=== PATIENT | male | born 1960 | race Caucasian/White ===

== ENCOUNTER 2019-08-06 20:12 | Inpatient (IN) | payer OTHER, MEDICAID ==
[~2019-08-06] VITALS: Ht 175.3 cm; Wt 61.7 kg
--- NOTE | 2019-08-06 20:17 | NUR ---
Placed in room 04 . Placed on groundwater monitoring technician, blood pressure machine and pulse oximeter. To gown for exam. Side rails up.
[2019-08-06 20:18] VITALS: BP_SYST 124
--- NOTE | 2019-08-06 20:30 | NUR ---
ER at bedside examining patient.
--- NOTE | 2019-08-06 20:35 | NUR ---
Pt present to ER with c/o of generalized weakness and not eating well. Pt was sent by physician to ER for further evaluaton. Pt has Hx of HTN and unknown cancer. Pt states he is to start chemotherapy in a few weeks, but denies starting. Pt denies any SOB< fever, N/V, chills. Will continue to monitor.
--- NOTE | 2019-08-06 20:40 | NUR ---
Dr. Perez at bedside examining Pt.
--- NOTE | 2019-08-06 20:45 | NUR ---
# 20 gauge angiocath placed to LFA. Use of asceptic technique. Opsite placed over site. Blood return noted. Blood for lab drawn from site. Flushed with 10 cc of normal saline. No evidence of infiltration noted. Patient tolerated well.
[2019-08-06] MEDS ORDERED: FOLI-43 PO (21:06)
[2019-08-06] MEDS ORDERED: IPRA4AER INH (21:06)
[2019-08-06] MEDS ORDERED: VITA1CAP PO (21:06)
[2019-08-06] MEDS ORDERED: BENA5TAB5 PO (21:06)
[2019-08-06] MEDS ORDERED: ASA81 PO (21:06)
[2019-08-06] MEDS ORDERED: TAMS-11 PO (21:06)
[2019-08-06] MEDS ORDERED: POTA8CAP17 PO (21:06)
[2019-08-06] MEDS ORDERED: MELA3TAB64 PO (21:06)
[2019-08-06] MEDS ORDERED: ATROPINE SULFATE 0.5 MG/5 ML SYRINGE IVP ONE (21:15)
--- NOTE | 2019-08-06 21:15 | NUR ---
Medication reconciliation completed with information provided by patient . Any prior medication reconciliation on file was reviewed and corrected.
[2019-08-06 21:16] LABS: BASOPHILS # (AUTO) 0.1 K/uL (0.0-0.2); BASOPHILS % (AUTO) 2.3 % (0.0-2.0); EOSINOPHILS # (AUTO) 0.2 K/uL (0.0-0.4); EOSINOPHILS % (AUTO) 4.6 % (0.0-4.0); HEMATOCRIT 28.2 % (36-54); HEMOGLOBIN 8.8 g/dL (14.0-18.0); LYMPHOCYTES # (AUTO) 1.6 K/uL (1.0-5.5); LYMPHOCYTES % (AUTO) 35.8 % (20.5-51.5); MEAN CORPUSCULAR HEMOGLOBIN 23 pg (27-31); MEAN CORPUSCULAR HGB CONC 31 % (32-36); MEAN CORPUSCULAR VOLUME 73 fL (79.0-98.0); MONOCYTES # (AUTO) 0.4 K/uL (0.0-1.0); MONOCYTES % (AUTO) 8.3 % (1.7-9.3); NEUTROPHILS # (AUTO) 2.2 K/uL (1.8-7.7); PLATELET COUNT (AUTO) 211 K/uL (130-430); RED BLOOD CELL COUNT(AUTO) 3.87 MIL/uL (4.2-6.2); RED CELL DISTRIBUTION WIDTH 16.7 % (9.0-15.0); WHITE BLOOD COUNT (AUTO) 4.6 K/uL (4.8-10.8)
[2019-08-06] MEDS ORDERED: ATROPINE SULFATE 1 MG/10 ML SYRINGE IVP ONE (21:24)
[2019-08-06 21:41] LABS: CALCIUM 8.7 mg/dL (8.4-11.0); CREATININE 0.98 mg/dL (0.55-1.30); INR 1.1 (0.80-1.20); POTASSIUM 3.7 mmol/L (3.5-5.1); PROTHROMBIN TIME 10.9 SECS (9.5-12.5)
[2019-08-06 21:47] LABS: ALBUMIN 3.3 g/dL (3.4-4.8); TOTAL BILIRUBIN 0.2 mg/dL (0.0-1.0)
--- NOTE | 2019-08-06 23:57 | NUR ---
Patient will be admitted to care of Dr. Olsen. Admitted to Telemetry unit. Will go to room 113B. Belongings list completed. Medical reconcilation completed. Summary report printed. Report will be given at bedside.
[2019-08-07] VITALS (7 sets, daily range): BP systolic 103–139
--- NOTE | 2019-08-07 00:16 | NUR ---
ADMISSION NOTE Received patient from ER via [facility], received report from IMANI sanders. Patient admitted with diagnosis of UIT, BRADYCARDIA AND FAILURE TO THRIVE. Patient oriented to hospital routine, call light, toileting and safety-patient verbalized understanding.
--- NOTE | 2019-08-07 01:06 | NUR ---
RN ROUNDS Patient is aox4, vital signs stable, on room air, denies any pain or discomfort at this time, placed on tele monitor, sinus bradycardia, HR in the 40s. Patient asymptomatic, IV line to left forearm intact and patent, saline lock, patient oriented to room and call light for nurse assistance, HS snack given, all belongings accounted for, educated on fall and safety measures, call light within reach, will monitor.
--- NOTE | 2019-08-07 02:08 | NUR ---
RN ROUNDS Patient awake, watching tv, breathing even and unlabored, denies any pain or discomfort at this time, safety measures in place, call light within reach.
--- NOTE | 2019-08-07 04:06 | NUR ---
RN ROUNDS Patient asleep, breathing even and unlabored, remains on room air, fall and safety measures in place, call light within reach, will monitor.
--- NOTE | 2019-08-07 06:07 | NUR ---
RN ROUNDS Patient asleep, breathing even and unlabored, remains sinus bradycardia on tele monitor. Needs attended through out the shift, fall and safety measures maintained, call light within reach, will monitor until report given to am nurse.
[2019-08-07 06:42] LABS: BILIRUBIN,URINE NEGATIVE (NEGATIVE); CLARITY/URINE SL HAZY (CLEAR); COLOR,URINE YELLOW (YELLOW); GLUCOSE,URINE NEGATIVE (NEGATIVE); KETONES,URINE NEGATIVE (NEGATIVE); LEUKOCYTE ESTERASE ,URINE 3+ (NEGATIVE); NITRITE, URINE NEGATIVE (NEGATIVE); PH,URINE 6.5 (5.0-8.0); PROTEIN URINE NEGATIVE (NEGATIVE); UROBILINOGEN,URINE 0.2 (0.2-1.0)
[2019-08-07 06:45] LABS: ALBUMIN 2.5 g/dL (3.4-4.8); CALCIUM 7.9 mg/dL (8.4-11.0); CREATININE 0.71 mg/dL (0.55-1.30); POTASSIUM 3.5 mmol/L (3.5-5.1); TOTAL BILIRUBIN 0.3 mg/dL (0.0-1.0)
[2019-08-07 06:45] LABS: BLOOD, URINE TRACE (NEGATIVE)
--- NOTE | 2019-08-07 06:59 | NUR ---
CONSULTATION PAGED REASON FOR CONSULTATION:BRADYCARDIA WAS CONSULT CALLED?Y PERSON WHO WAS NOTIFIED:FIDELINA CONSULTING PHYSICIAN:BRENT SHEEHAN BRIM AND CROWN PRESSER SPECIALTY:CARDIO BRIM AND CROWN PRESSER PHONE NUMBER:[phone] ORDERING PHYSICIAN:ANTONINO ANDERSON
[2019-08-07 07:47] LABS: HEMATOCRIT 24.9 % (36-54); HEMOGLOBIN 7.9 g/dL (14.0-18.0); RED BLOOD CELL COUNT(AUTO) 3.42 MIL/uL (4.2-6.2)
[2019-08-07 07:48] LABS: BASOPHILS % (AUTO) 0.8 % (0.0-2.0); EOSINOPHILS # (AUTO) 0.2 K/uL (0.0-0.4); LYMPHOCYTES # (AUTO) 1.6 K/uL (1.0-5.5); LYMPHOCYTES % (AUTO) 44.6 % (20.5-51.5); MEAN CORPUSCULAR HEMOGLOBIN 23 pg (27-31); MEAN CORPUSCULAR HGB CONC 32 % (32-36); MEAN CORPUSCULAR VOLUME 73 fL (79.0-98.0); MONOCYTES # (AUTO) 0.4 K/uL (0.0-1.0); MONOCYTES % (AUTO) 10.8 % (1.7-9.3); NEUTROPHILS # (AUTO) 1.3 K/uL (1.8-7.7); NEUTROPHILS % (AUTO) 37.8 % (40.0-70.0); PLATELET COUNT (AUTO) 184 K/uL (130-430); RED CELL DISTRIBUTION WIDTH 16.7 % (9.0-15.0)
[2019-08-07 07:49] LABS: WHITE BLOOD COUNT (AUTO) 3.6 K/uL (4.8-10.8)
--- NOTE | 2019-08-07 08:00 | NUR ---
initial notes rec patient awake alert with ivl on the l forearm intact. no infiltration noted. resp easy and unlabored. no sob noted. bed to the lowest position and side rails up and locked. call light within reached and knows when to call for assistance. will continue to monitor patient.
[2019-08-07 08:06] LABS: BACTERIA,URINE MODERATE /HPF (None Seen); WBC,URINE 20-50 /HPF (0-3)
--- NOTE | 2019-08-07 10:00 | NUR ---
rounds asleep at intervals or watching tv. no sob noted. call light within reached.
--- NOTE | 2019-08-07 12:00 | NUR ---
rounds eating lunch . no sob noted. turned repositioned self in bed. call light within reached.
--- NOTE | 2019-08-07 13:31 | NUR ---
CONSULTATION PAGED REASON FOR CONSULTATION:DEPRESSION WAS CONSULT CALLED?Y PERSON WHO WAS NOTIFIED:ESTRELLITA CONSULTING PHYSICIAN:CHANDRA HARDY BRIM RAISER SPECIALTY:PSYCH BRIM RAISER PHONE NUMBER:[phone] ORDERING PHYSICIAN:ANTONINO ANDERSON FACESHEET WILL BE FAXED
--- NOTE | 2019-08-07 14:00 | NUR ---
rounds seen by dr rgegory. denies pain and watching tv.
--- NOTE | 2019-08-07 15:49 | NUR ---
Consulting Utility Forester: met with pt. who has hx of anxiety, possibly depression, and possibly paranoid schizophrenia. DATA CONVERSION ANALYST met with pt. who was sitting up in his bed. Pt. stated he was doing well, but wants to know when he will be discharged. He stated he has 3 younger adult brothers, has been and has one son in his 30's who lives in the [facility]. He said he was living with one of his brothers, but came from a [place]. Pt. stated when he was getting a divorce, his kept his son from him so know he does not have a real connection or relationship with him. Pt. does have his 3 brothers to support him and they reside in [place]. He stated he did not like the [place] food as he hates Mayonnaise. He added he is lactose intolerant. Pt. stated he use to weigh 180 pounds and now weights 136. Pt. stated he will be going back to the [place]. DATA CONVERSION ANALYST asked him about any mental health concerns and if he had ever been Dx. with depression anxiety paranoid schizophrenia. Pt. answered yes to all. He stated he use to take medication for depression. He thinks he was taking Zoloft in the late 80's or early 90's. Pt stated he has a PCP and knows how to access help for any mental health needs. Pt. stated he really likes fishing, shooting and archery. Pt stated he learned all this as a [employer] and he likes the outdoors. Pt. feels the outdoors is a healing for him. DATA CONVERSION ANALYST provided pt. with some mental health resources as well as some medical clinics in the event he needs them. Pt. stated he just could not remember the clinics name ,but knows where to go for services. Pt stated he is feeling well mentally and does not need any interventions or mental health services. DATA CONVERSION ANALYST will remain available as needed. Addendum: 08/07/19 at 1603 by Frida Barrios DATA CONVERSION ANALYST Pt. is still wating for a Psyc. Consult.
--- NOTE | 2019-08-07 18:39 | NUR ---
closing notes resting comfortably after dinner. denies pain. no sob noted. bed to the lowest position. and side rails up and locked. call light within reached.
--- NOTE | 2019-08-07 19:50 | NUR ---
INITIAL NOTE AT INITIAL ASSESSMENT, PATIENT IS RESTING IN BED, STABLE, NO SIGNS OF RESPIRATORY DISTRESS. PATIENT VERBALIZES NO PAIN. PLAN OF CARE FOR THE EVENING IS COMMUNICATED WITH THE PATIENT. PATIENT DEMONSTRATES CORRECT USAGE OF CALL LIGHT AT THIS TIME. BED IS LOCKED, ALARMED, AND AT THE LOWEST LEVEL. FALL AND SAFETY PRECAUTIONS WILL BE TAKEN THROUGHOUT THE SHIFT.
--- NOTE | 2019-08-07 21:50 | NUR ---
NOTE PATIENT IS RESTING IN BED, STABLE, NO SIGNS OF RESPIRATORY DISTRESS. CALL LIGHT IS WITHIN REACH. BED IS LOCKED, ALARMED, AND AT THE LOWEST LEVEL.
--- NOTE | 2019-08-07 23:50 | NUR ---
NOTE PATIENT IS SLEEPING, STABLE, NO SIGNS OF RESPIRATORY DISTRESS. CALL LIGHT IS WITHIN REACH. BED IS LOCKED, ALARMED, AND AT THE LOWEST LEVEL.
--- NOTE | 2019-08-08 01:45 | NUR ---
NOTE PATIENT IS SLEEPING, STABLE, NO SIGNS OF RESPIRATORY DISTRESS. CALL LIGHT IS WITHIN REACH. BED IS LOCKED, ALARMED, AND AT THE LOWEST LEVEL.
--- NOTE | 2019-08-08 03:45 | NUR ---
NOTE PATIENT IS SLEEPING, STABLE, NO SIGNS OF RESPIRATORY DISTRESS. CALL LIGHT IS WITHIN REACH. BED IS LOCKED, ALARMED, AND AT THE LOWEST LEVEL.
--- NOTE | 2019-08-08 05:45 | NUR ---
NOTE PATIENT IS RESTING IN BED, STABLE, NO SIGNS OF RESPIRATORY DISTRESS. CALL LIGHT IS WITHIN REACH. BED IS LOCKED, ALARMED, AND AT THE LOWEST LEVEL.
--- NOTE | 2019-08-08 06:35 | NUR ---
CLOSING NOTE PATIENT SLEPT WELL THROUGHOUT THE NIGHT. AT THIS TIME, HE IS RESTING IN BED, STABLE, NO SIGNS OF RESPIRATORY DISTRESS. CALL LIGHT IS WITHIN REACH. BED IS LOCKED, ALARMED, AND AT THE LOWEST LEVEL. FALL AND SAFETY PRECAUTIONS HAVE BEEN IN PLACE THROUGHOUT THE SHIFT. WILL CONTINUE TO MONITOR UNTIL SHIFT REPORT IS GIVEN AT BEDSIDE TO AM NURSE.
[2019-08-08 07:44] LABS: BASOPHILS % (AUTO) 0.6 % (0.0-2.0); CALCIUM 8.3 mg/dL (8.4-11.0); CREATININE 0.77 mg/dL (0.55-1.30); EOSINOPHILS # (AUTO) 0.2 K/uL (0.0-0.4); EOSINOPHILS % (AUTO) 4.5 % (0.0-4.0); HEMATOCRIT 27.4 % (36-54); HEMOGLOBIN 8.7 g/dL (14.0-18.0); LYMPHOCYTES # (AUTO) 1.4 K/uL (1.0-5.5); LYMPHOCYTES % (AUTO) 36.4 % (20.5-51.5); MEAN CORPUSCULAR HEMOGLOBIN 23 pg (27-31); MEAN CORPUSCULAR HGB CONC 32 % (32-36); MEAN CORPUSCULAR VOLUME 73 fL (79.0-98.0); MONOCYTES # (AUTO) 0.4 K/uL (0.0-1.0); MONOCYTES % (AUTO) 9.6 % (1.7-9.3); NEUTROPHILS # (AUTO) 1.9 K/uL (1.8-7.7); NEUTROPHILS % (AUTO) 48.9 % (40.0-70.0); PLATELET COUNT (AUTO) 191 K/uL (130-430); POTASSIUM 3.6 mmol/L (3.5-5.1); RED BLOOD CELL COUNT(AUTO) 3.77 MIL/uL (4.2-6.2); RED CELL DISTRIBUTION WIDTH 16.8 % (9.0-15.0); WHITE BLOOD COUNT (AUTO) 3.9 K/uL (4.8-10.8)
[2019-08-08 07:53] VITALS: BP_SYST 127
[2019-08-08 08:00] VITALS: BP_SYST 140
--- NOTE | 2019-08-08 08:00 | NUR ---
ASSUMPTION OF CARE: RECEIVED PT A/A/OX4, DX: INADEQUATE PERFUSION, R/T BRADYCARDIA, FAILURE TO THRIVE, UTI, HR=54 ON TELEMONITOR, ASYMPTOMATIC, AFEBRILE, BREATH SOUNDS ARE CLEAR, BREATHING UNLABORED, IV SITE INTACT, PATENT, NO REDNESS OR SWELLING, ORIENTED TO UNIT, CALL LIGHT PLACED WITHIN REACH, WILL CON'T TO MONITOR AND ASSESS.
[2019-08-08 12:00] VITALS: BP_SYST 125
--- NOTE | 2019-08-08 12:00 | NUR ---
NURSES NOTES: PT RESTING IN POSITION OF COMFORT, NO S/S OF DISTRESS, NEED MET, CALL LIGHT PLACED WITHIN REACH, WILL CON'T TO MONITOR AND ASSESS.
--- NOTE | 2019-08-08 14:00 | NUR ---
NURSES NOTES: PT MONITORED FOR CHANGES, REMAINS STABLE, NO C/O PAIN OR DISCOMFORT, WILL CON'T WITH POC.
--- NOTE | 2019-08-08 16:04 | NUR ---
Dietitian Recommendation 1. Continue Regular diet Please see Nutrition Assessment for further details. LT, RD
--- NOTE | 2019-08-08 18:00 | NUR ---
END OF SHIFT: PT HAS BEEN CLEANED, COLOSTOMY BAG CHANGED, LINEN CHANGED, MADE COMFORTABLE, CALL LIGHT PLACED WITHIN REACH, WILL ENDORSE TO NARROW FABRICS WEAVER NURSE.
[2019-08-08 19:50] VITALS: BP_SYST 139
[2019-08-08] MEDS: MIRTAZAPINE 15 MG TABLET PO SCH (20:18)
--- NOTE | 2019-08-08 21:50 | NUR ---
PATIENT REFUSES MEDICATION PATIENT IS REFUSING NEW SCHEDULED ORDER FOR REMERON DESPITE EDUCATIONAL EFFORTS. HE IS OTHERWISE STABLE. AT THIS TIME, PATIENT IS RESTING IN BED, STABLE, NO SIGNS OF RESPIRATORY DISTRESS. CALL LIGHT IS WITHIN REACH. BED IS LOCKED, ALARMED, AND AT THE LOWEST LEVEL.
--- NOTE | 2019-08-08 23:50 | NUR ---
NOTE PATIENT IS SLEEPING, STABLE, NO SIGNS OF RESPIRATORY DISTRESS. CALL LIGHT IS WITHIN REACH. BED IS LOCKED, ALARMED, AND AT THE LOWEST LEVEL.
--- NOTE | 2019-08-09 01:50 | NUR ---
NOTE PATIENT IS SLEEPING, STABLE, NO SIGNS OF RESPIRATORY DISTRESS. CALL LIGHT IS WITHIN REACH. BED IS LOCKED, ALARMED, AND AT THE LOWEST LEVEL.
[2019-08-09 02:53] VITALS: BP_SYST 130
--- NOTE | 2019-08-09 03:50 | NUR ---
NOTE PATIENT IS SLEEPING, STABLE, NO SIGNS OF RESPIRATORY DISTRESS. CALL LIGHT IS WITHIN REACH. BED IS LOCKED, ALARMED, AND AT THE LOWEST LEVEL.
--- NOTE | 2019-08-09 05:10 | NUR ---
NOTE PATIENT IS SLEEPING, STABLE, NO SIGNS OF RESPIRATORY DISTRESS. CALL LIGHT IS WITHIN REACH. BED IS LOCKED, ALARMED, AND AT THE LOWEST LEVEL.
[2019-08-09 06:22] LABS: BASOPHILS % (AUTO) 0.7 % (0.0-2.0); EOSINOPHILS # (AUTO) 0.2 K/uL (0.0-0.4); EOSINOPHILS % (AUTO) 5.4 % (0.0-4.0); HEMATOCRIT 28.5 % (36-54); LYMPHOCYTES # (AUTO) 1.2 K/uL (1.0-5.5); LYMPHOCYTES % (AUTO) 31.7 % (20.5-51.5); MEAN CORPUSCULAR HEMOGLOBIN 23 pg (27-31); MEAN CORPUSCULAR HGB CONC 32 % (32-36); MEAN CORPUSCULAR VOLUME 73 fL (79.0-98.0); MONOCYTES # (AUTO) 0.4 K/uL (0.0-1.0); MONOCYTES % (AUTO) 11.3 % (1.7-9.3); NEUTROPHILS % (AUTO) 50.9 % (40.0-70.0); PLATELET COUNT (AUTO) 181 K/uL (130-430); RED BLOOD CELL COUNT(AUTO) 3.92 MIL/uL (4.2-6.2); RED CELL DISTRIBUTION WIDTH 16.9 % (9.0-15.0); WHITE BLOOD COUNT (AUTO) 3.9 K/uL (4.8-10.8)
[2019-08-09 06:49] LABS: ALBUMIN 2.9 g/dL (3.4-4.8); CALCIUM 8.3 mg/dL (8.4-11.0); CREATININE 0.82 mg/dL (0.55-1.30); POTASSIUM 4.1 mmol/L (3.5-5.1); TOTAL BILIRUBIN 0.2 mg/dL (0.0-1.0)
[2019-08-09 07:59] VITALS: BP_SYST 131
--- NOTE | 2019-08-09 08:00 | NUR ---
ASSUMPTION OF CARE: RECEIVED PT A/A/OX4, DX: INADEQUATE PERFUSION, R/T BRADYCARDIA, FAILURE TO THRIVE, UTI, SB ON TELEMONITOR, ASYMPTOMATIC, AFEBRILE, BREATH SOUNDS ARE CLEAR, BREATHING UNLABORED, IV SITE INTACT, PATENT, NO REDNESS OR SWELLING, ORIENTED TO UNIT, CALL LIGHT PLACED WITHIN REACH, WILL CON'T TO MONITOR AND ASSESS.
--- NOTE | 2019-08-09 09:00 | NUR ---
ASSISTANT MANAGER AIRSIDE OPERATIONS: MORNING MEDS GIVEN, PER ORDERED BY Rose, TOLERATED WELL, WILL CON'T TO MONITOR AND ASSESS.
[2019-08-09] MEDS: LEVOFLOXACIN 500 MG TABLET PO SCH (09:12)
--- NOTE | 2019-08-09 10:00 | NUR ---
SAUSAGE CANNER: MORNING MED GIVEN, PER ORDERED BY Rose, TOLERATED WELL, WILL CON'T WITH POC.
[2019-08-09 11:26] VITALS: BP_SYST 119
--- NOTE | 2019-08-09 14:00 | NUR ---
NURSES NOTES: PT REMAINS STABLE, NO SIGNIFICANT CHANGES NOTED, COLOSTOMY CARE GIVEN, HAS MODERATE AMT BM, BROWN, SOFT IN CONSISTENCY, PARTIAL LINEN CHANGED, CALL LIGHT PLACED WITHIN REACH, WILL CON'T TO MONITOR AND ASSESS.
[2019-08-09 15:38] VITALS: BP_SYST 121
--- NOTE | 2019-08-09 17:00 | NUR ---
NURSES NOTES: PT MONITORED FOR CHANGES, REMAINS STABLE, NO C/O PAIN OR DISCOMFORT, WILL CON'T WITH POC.
[2019-08-09 19:45] VITALS: BP_SYST 152
[2019-08-09] MEDS: MIRTAZAPINE 15 MG TABLET PO SCH (20:41)
--- NOTE | 2019-08-09 21:45 | NUR ---
NEW MED NOTE PATIENT AGREES TO TRY REMERON FOR THE FIRST TIME, WILL MONITOR CLOSELY FOR ADVERSE SIDE EFFECTS. AT THIS TIME, HE IS STABLE, NO SIGNS OF RESPIRATORY DISTRESS. CALL LIGHT IS WITHIN REACH. BED IS LOCKED, ALARMED, AND AT THE LOWEST LEVEL.
--- NOTE | 2019-08-09 23:45 | NUR ---
NOTE PATIENT IS SLEEPING, STABLE, NO SIGNS OF RESPIRATORY DISTRESS. CALL LIGHT IS WITHIN REACH. BED IS LOCKED, ALARMED, AND AT THE LOWEST LEVEL.
[2019-08-10] VITALS: BP_SYST 146
--- NOTE | 2019-08-10 01:45 | NUR ---
NOTE PATIENT IS SLEEPING, STABLE, NO SIGNS OF RESPIRATORY DISTRESS. CALL LIGHT IS WITHIN REACH. BED IS LOCKED, ALARMED, AND AT THE LOWEST LEVEL.
--- NOTE | 2019-08-10 03:45 | NUR ---
NOTE PATIENT IS SLEEPING, STABLE, NO SIGNS OF RESPIRATORY DISTRESS. CALL LIGHT IS WITHIN REACH. BED IS LOCKED, ALARMED, AND AT THE LOWEST LEVEL.
--- NOTE | 2019-08-10 05:45 | NUR ---
NOTE PATIENT IS RESTING IN BED, STABLE, NO SIGNS OF RESPIRATORY DISTRESS. CALL LIGHT IS WITHIN REACH. BED IS LOCKED, ALARMED, AND AT THE LOWEST LEVEL.
[2019-08-10 07:25] LABS: BASOPHILS % (AUTO) 0.7 % (0.0-2.0); EOSINOPHILS # (AUTO) 0.2 K/uL (0.0-0.4); HEMATOCRIT 32.3 % (36-54); LYMPHOCYTES # (AUTO) 1.3 K/uL (1.0-5.5); LYMPHOCYTES % (AUTO) 28.9 % (20.5-51.5); MEAN CORPUSCULAR HEMOGLOBIN 23 pg (27-31); MEAN CORPUSCULAR HGB CONC 31 % (32-36); MEAN CORPUSCULAR VOLUME 73 fL (79.0-98.0); MONOCYTES # (AUTO) 0.4 K/uL (0.0-1.0); MONOCYTES % (AUTO) 8.9 % (1.7-9.3); NEUTROPHILS # (AUTO) 2.5 K/uL (1.8-7.7); NEUTROPHILS % (AUTO) 56.5 % (40.0-70.0); PLATELET COUNT (AUTO) 210 K/uL (130-430); RED BLOOD CELL COUNT(AUTO) 4.43 MIL/uL (4.2-6.2); RED CELL DISTRIBUTION WIDTH 16.8 % (9.0-15.0); WHITE BLOOD COUNT (AUTO) 4.4 K/uL (4.8-10.8)
[2019-08-10 07:32] LABS: CALCIUM 8.6 mg/dL (8.4-11.0); CREATININE 0.87 mg/dL (0.55-1.30); POTASSIUM 3.4 mmol/L (3.5-5.1)
--- NOTE | 2019-08-10 08:00 | NUR ---
initial notes rec patient awake alert and was ambulating to the br with a walker. resp easy and unlabored. no sob noted. bed to the lowest position and side rails up and locked. call light within reached and knows when to call for assistance. pt is close to the nurses station. will continue to monitor patient.
[2019-08-10 08:01] VITALS: BP_SYST 123
[2019-08-10] MEDS: LEVOFLOXACIN 500 MG TABLET PO SCH (09:45)
--- NOTE | 2019-08-10 10:00 | NUR ---
rounds due med was given and rose well. went back to sleep. call light within reached.
[2019-08-10 11:20] VITALS: BP_SYST 125
--- NOTE | 2019-08-10 12:00 | NUR ---
rounds pt is eating lunch slowly and rose well. no sob noted. call light within reached.
--- NOTE | 2019-08-10 13:18 | NUR ---
Discharge Planning: DCP faxed pt referral to [facility] (f [phone] p [phone]) DCP to follow up Addendum: 08/10/19 at 1603 by Rebeca Lord DP Patient accepted [facility] (f [phone] p [phone]) RM 148[address] , [facility] ([phone]) 7:00pm P/U Nurse made aware patient packet taken to nurse station.
[2019-08-10 15:53] VITALS: BP_SYST 129
[2019-08-10 19:15] VITALS: BP_SYST 129
== END 2019-08-10 19:37 | DRG 690 ==
LOC: SED 20:12 → STU 23:44
PROVIDERS: ADMIT Internal Medicine; ATTEND Internal Medicine
DX: N39.0 Urinary tract infection, site not specified (principal); R00.1 Bradycardia, unspecified; I50.9 Heart failure, unspecified; K72.90 Hepatic failure, unspecified without coma; E11.9 Type 2 diabetes mellitus without complications; F03.90 Unspecified dementia, unspecified severity, without behavioral disturbance, psychotic disturbance, mood disturbance, and anxiety; J45.909 Unspecified asthma, uncomplicated; F32.9 Major depressive disorder, single episode, unspecified; E03.9 Hypothyroidism, unspecified; I11.0 Hypertensive heart disease with heart failure; K74.60 Unspecified cirrhosis of liver; Z85.038 Personal history of other malignant neoplasm of large intestine; N40.0 Benign prostatic hyperplasia without lower urinary tract symptoms; K52.9 Noninfective gastroenteritis and colitis, unspecified; Z86.73 Personal history of transient ischemic attack (TIA), and cerebral infarction without residual deficits; Z87.442 Personal history of urinary calculi; Z88.0 Allergy status to penicillin; Z79.84 Long term (current) use of oral hypoglycemic drugs
CPT/HCPCS: 36415; 71045; 80048; 80053; 80061; 81000-TC; 82140-TC; 83605; 83690-TC; 83880; 84443-TC; 84484; 85025; 85610-TC; 87040-TC; 87081; 87086; 93005; 93306; 96374; 99285; A4371; A5061; G0378; J0461